=== PATIENT | male | born 1985 | race Caucasian/White ===

== ENCOUNTER → 2020-03-15 13:10 | Outpatient (BNVA) | payer OTHER, SELFPAY | PROVIDERS: Visit Provider Internal Medicine | DX: S53.30XD Traumatic rupture of unspecified ulnar collateral ligament, subsequent encounter (principal); X58.XXXD Exposure to other specified factors, subsequent encounter | CPT/HCPCS: 99213 ==

== ENCOUNTER → 2020-04-11 09:12 | Outpatient (BNVA) | payer OTHER, SELFPAY | PROVIDERS: Visit Provider Internal Medicine | DX: S63.418D Traumatic rupture of collateral ligament of other finger at metacarpophalangeal and interphalangeal joint, subsequent encounter (principal); X58.XXXD Exposure to other specified factors, subsequent encounter | CPT/HCPCS: 99213 ==